=== PATIENT | male | born 1940 | race Caucasian/White ===

== ENCOUNTER 2017-04-28 14:24 | Inpatient (IN) | payer OTHER ==
[~2017-04-28] VITALS: Ht 182.9 cm; Wt 110.7 kg
--- NOTE | ~2017-04-28 | 2DMMODE ---
[facility] [address] [place] [address] 2 D/M-MODE ECHOCARDIOGRAM Name: TARYN FAM Room #: 438-P ADM IN M.R.#: [id number] Admission: 04/28/17 Attend Phys: Jesus Chaidez, Discharge: Date of : 44 Date of Service: 04/29/17 1236 Report #: [id number] THIS REPORT FOR: //name// APPROVED REPORT Study performed: 04/29/2017 09:07:45 EXAM: Comprehensive 2D, Doppler, and color-flow Echocardiogram Patient Location: Echo lab Room #: [facility] Status: routine BSA: 2.32 HR: 80 bpm BP: 123/84 mmHg Rhythm: Atrial Fibrillation Other Information Study Quality: Good Indications CVA. Hx: Afib, CM, AVR, HTN, HLP, DM, obesity Echo Enhancing Agent Indication: Rule out Shunt Agent(s) / Amount(s) Used: Agitated Saline 6 cc 2D Dimensions RVDd: 44.78 mm LVEF(%): 50.08 (>50%) IVSd: 11.99 (7-11mm) LVOT Diam: 22.28 (18-24mm) LVDd: 57.12 mm PWd: 11.91 (7-11mm) LVDs: 42.38 (25-40mm) Aortic Root: 30.83 mm Reveles's LVEF: 50.08 % Volumes Left Atrial Volume (Systole) Single Plane 4CH: 105.91 mL Single Plane 2CH: 96.22 mL LA ESV Index: 47.00 mL/m2 Aortic Valve AoV Peak Hesham.: 2.29 m/s AO Peak Gr.: 21.08 mmHg LVOT Max P.34 mmHg LVOT Max V: 0.76 m/s LEI Vmax: 1.[address] [facility] [address] [place] [address] 2 D/M-MODE ECHOCARDIOGRAM Name: TARYN FAM Room #: 438-P ADM IN M.R.#: [id number] Admission: 04/28/17 Attend Phys: Jesus Chaidez, Discharge: Date of : 44 Date of Service: 04/29/17 1236 Report #: [id number] Mitral Valve MV Decel. Time: 198.90 ms MV E Max Hesham.: 1.08 m/s Pulmonary Valve PV Peak Hesham.: 0.93 m/s PV Peak Gr.: 3.54 mmHg Tricuspid Valve TR Peak Hesham.: 2.69 m/s RAP Estimate: 15.00 mmHg TR Peak Gr.: 28.95 mmHg PA Pressure: 44.00 mmHg Left Ventricle The left ventricle is normal size. There is normal LV segmental wall motion. Borderline concentric left ventricular hypertrophy. Left ventricular systolic function is normal. LVEF is 50-55%. This study is not technically sufficient to allow evaluation of the LV diastolic function due to atrial fibrillation. Right Ventricle The right ventricle is normal size. The right ventricular systolic function is normal. Atria Left atrium is moderate to severely dilated. No shunting noted by contrast bubble injection. Right atrium is moderate to severely dilated. Aortic Valve A #25 Jose bioprosthetic aortic valve is present. Appears to be functioning within normal limits Peak gradient of 21mmHg. Trace aortic regurgitation. Mitral Valve Mitral valve leaflets are mildly thickened. Moderate mitral regurgitation. Tricuspid Valve The tricuspid valve is normal in structure. Mild tricuspid regurgitation. Estimated PAP is 40-45mmHg. Pulmonic Valve The pulmonary valve is normal in structure. Trace pulmonic regurgitation. [facility] [address] [place] [address] 2 D/M-MODE ECHOCARDIOGRAM Name: TARYN FAM Room #: 438-P [facility] IN .R.#: [id number] Admission: 04/28/17 Attend Phys: Jesus Chaidez, Discharge: Date of : 44 Date of Service: 04/29/17 1236 Report #: [id number] Great Vessels The aortic root is normal in size. Ascending aorta is not well visualized. IVC is dilated and collapses <50% with inspiration. Pericardium There is no pericardial effusion. <Conclusion> Left ventricular systolic function is normal. LVEF is 50-55%. Both atria are moderate to severely dilated. No shunting noted by contrast bubble injection. A #25 Jose bioprosthetic aortic valve is present; functioning normally peak gradient of 21mmHg. Mitral valve leaflets are mildly thickened. Moderate mitral regurgitation. Mild tricuspid regurgitation. Estimated pulmonary artery pressure of 40-45mmHg. There is no pericardial effusion. <ELECTRONICALLY SIGNED> By: Drew Shah MD, FACC 04/29/17 1236 1236 1236 Drew Shah MD, FACC /INF
--- NOTE | ~2017-04-28 | HC ---
[facility] [address] CONSULTATION Name: TARYN FAM Room #: 438-P [facility] IN M.R.#: [id number] Admission: 04/28/17 Attend Phys: Jesus Chaidez DO Discharge: 04/30/17 Date of : 44 Report #: [id number] THIS REPORT FOR: //name// CC: Pancho Bliss FAM unknown Jesus Chaidez DATE OF SERVICE: 04/28/2017 HISTORY OF PRESENT ILLNESS: This is a 76-year-old male patient who was evaluated by me for left-sided weakness, which happened this morning. The patient is not clear about the symptoms, but I think he woke up with the symptoms. He was having pretty profound weakness in the left upper extremity and to some extent in the left lower extremity. Most of the weakness was in the left upper extremity. He may have improved some, but on examination, he still has weakness on the left side. This came spontaneously. He has a valve replacement and looks like he has atrial fibrillation. He said he was not able to take his Coumadin for some reason from the last 2-3 days. His INR was subtherapeutic. His protime was only 16.8 and his INR was 1.75. The only testing he had was a CT scan of the brain and as I understand that was unremarkable. He did have CBC and CMP and that his GFR was 68. REVIEW OF SYSTEMS: Indicates that he is on chronic anticoagulation, but he has missed his anticoagulation for last few days. He gave some complicated disease in which I do not understand he just says that he fell asleep. He does have atrial fibrillation on EKG done outside. His regular sas clinical programmer is Dr. Smith here. There are not much records in the patient's chart, but he indicates that prior to this, he did not have any stroke. He was not using a walker. They gave him a walker in case he needs it here. He denies any eye, ENT symptoms associated with this. He denies any chest pain, respiratory difficulty, GI, , musculoskeletal, constitutional, dermatological, hematological, psychiatric, throat, allergic symptom associated with present symptomatology. PAST MEDICAL HISTORY: Negative for stroke. FAMILY HISTORY: Negative for early age stroke. SOCIAL HISTORY: He indicates he was functioning independently before he came to the hospital. PHYSICAL EXAMINATION: Indicate he is alert, responsive, able to follow simple and complex command. His speech, concentration, fund of knowledge and memory is at his baseline. Cranial nerve examination 2-12 is mostly unremarkable. I do not see any definite hemianopsia or facial weakness, but he is weak on the left side. His finer coordination is significantly impaired. He does have a drift [facility] [address] [place] [address] CONSULTATION Name: TARYN FAM Room #: 438-P DIS IN M.R.#: [id number] Admission: 04/28/17 Attend Phys: Jesus Chaidez DO Discharge: 04/30/17 Date of : 44 Report #: [id number] on the left side. His left leg is reasonably preserved. His position sense is intact. His reflexes are symmetrical. He does not have any cerebellar sign. There is no meningeal sign. There is no carotid bruit. There is no thyroid mass. He is a very well developed individual who does not have any dysmorphic features of eyes, ears and face. His visions and hearing looks adequate. His pulses are somewhat difficult to feel, but he has no edema, cyanosis or jaundice. His heart looks irregular, but that is consistent with his atrial fibrillation on EKG. His vital signs indicate a blood pressure is 150/80, respirations 20, pulse is 84, temperature is 98.1. LABORATORY DATA: Done outside and as mentioned above, his BUN and creatinine looks okay. IMPRESSION: The patient's finding is consistent with a right hemispheric cerebrovascular accident. He has moderate amount of deficit. Records from outside hospital indicate that his symptoms have recovered, but he gives a different history and his examination does indicate that he has weakness on the left side. These findings are consistent with an emboli from the heart because of his therapeutic anticoagulation and his missing the dose of Coumadin and his history of atrial fibrillation and aortic wall. He does not know whether his aortic wall is compatible with MRI or not. RECOMMENDATION: I had a long talk with this patient. I discussed with him that I do not know whether anything is treatable at this stage or not. I will like to do a CT angiogram to see if there is any penumbra in this patient. For that, we will need a CT angiogram of the head and neck, but looks like his symptoms are going on for some time and we may just land up managing him conservatively. We will try to keep his blood pressure high, give him some normal saline, but we will see what the CT angiogram shows. I discussed with him indication, potential complication, and alternatives of CT angiogram and he understood it and wants to proceed with it. More than 50 minutes of time was spent taking care of this patient today and majority of that time was spent counseling the patient and coordinating his care. <ELECTRONICALLY SIGNED> By: Ramirez Varghese MD 05/02/17 2134 [id number] Ramirez Varghese MD /eliza
[2017-04-28 14:02] VITALS: BP 150/80
[2017-04-28] MEDS ORDERED: LISINOPRIL20 MG PO (19:23)
[2017-04-28 19:26] VITALS: BP 145/80
[2017-04-28] MEDS ORDERED: COUMADIN 1MG TAB1 M1 PO (19:38)
[2017-04-28] MEDS ORDERED: GLIPIZIDE 10 MG10 MG PO (19:39)
[2017-04-28] MEDS ORDERED: KLOR-CON 1010 MEQ PO (20:27)
[2017-04-28] MEDS ORDERED: DIGOXIN125 MCG PO (20:27)
[2017-04-28] MEDS ORDERED: LASIX 40 MG TAB40 M2 PO (20:28)
[2017-04-28] MEDS ORDERED: ZOCOR20 MG PO (20:29)
[2017-04-28] MEDS ORDERED: METFORMIN HCL500 MG PO (20:29)
[2017-04-28] MEDS ORDERED: MOBIC15 MG PO (20:30)
[2017-04-28] MEDS ORDERED: LOPRESSOR25 PO (20:30)
[2017-04-28] MEDS ORDERED: VITAMINC500 PO (20:31)
[2017-04-28] MEDS ORDERED: UNICOMPLEX M TA1 TA1 PO (20:31)
[2017-04-29 00:36] VITALS: BP 156/77
[2017-04-29 02:48] VITALS: BP 139/83
[2017-04-29 06:53] LABS: ALBUMIN 3.3 g/dL (3.4-5.0); ANION GAP 8 mmol/L (7-16); BUN 18 mg/dL (7-18); CALCIUM 8.9 mg/dL (8.5-10.1); CHLORIDE 108 mmol/L (98-107); CO2 27 mmol/L (21-32); GLUCOSE 109 mg/dL (74-106); POTASSIUM 4.3 mmol/L (3.5-5.1); SGOT 19 U/L (15-37); SGPT 26 U/L (30-65); SODIUM 143 mmol/L (136-145); TOTAL BILIRUBIN 0.5 mg/dL (<0.1-1.0); TOTAL PROTEIN 6.8 g/dL (6.4-8.2)
[2017-04-29 07:57] VITALS: BP 123/84
[2017-04-29 07:57] LABS: CHOLESTEROL 98 mg/dL (<200); HDL CHOLESTEROL 27 mg/dL (>40); LDL CHOLESTEROL 45 mg/dL (<100); TC:HDL 3.6 Ratio (Not establshd); TRIGLYCERIDE 130 mg/dL (<150); VLDL 26 mg/dL (<40)
[2017-04-29 08:48] LABS: INR 1.4; PROTIME 14.3 Seconds (9.3-11.4)
[2017-04-29 15:43] VITALS: BP 136/65
[2017-04-29 22:26] VITALS: BP 144/77
[2017-04-30 04:22] VITALS: BP 122/72
[2017-04-30 06:23] LABS: INR 1.4
[2017-04-30 08:00] VITALS: BP 133/91
[2017-04-30] MEDS ORDERED: ELIQUIS5 MG PO (10:21)
[2017-04-30 12:11] VITALS: BP 133/91
[2017-04-30 12:16] VITALS: BP 133/91
[2017-04-30 15:50] VITALS: BP 133/91
== END 2017-04-30 15:30 | disposition home or self-care (01) | DRG 65 ==
LOC: 4S 14:24 → ENTRNSPT 04-30 15:13 → EDTRNSPTSTS 04-30 15:21 → 4S 04-30 15:30 → CMPTRNSPT 04-30 15:40
PROVIDERS: Hospitalist; Internal Medicine Cardiovascular Disease; Psychiatry & Neurology Neuromuscular Medicine
DX: I63.431 Cerebral infarction due to embolism of right posterior cerebral artery (principal); I42.9 Cardiomyopathy, unspecified; D68.59 Other primary thrombophilia; I10 Essential (primary) hypertension; E11.9 Type 2 diabetes mellitus without complications; E66.9 Obesity, unspecified; E78.00 Pure hypercholesterolemia, unspecified; E03.9 Hypothyroidism, unspecified; I48.2 Chronic atrial fibrillation; M47.812 Spondylosis without myelopathy or radiculopathy, cervical region; Z95.2 Presence of prosthetic heart valve; Z68.33 Body mass index [BMI] 33.0-33.9, adult; Z88.0 Allergy status to penicillin; Z88.7 Allergy status to serum and vaccine; Z87.891 Personal history of nicotine dependence; Z91.19 Patient's noncompliance with other medical treatment and regimen
CPT/HCPCS: 10100

== ENCOUNTER 2018-03-17 05:33 | Inpatient (IN) | payer OTHER ==
--- NOTE | 2018-03-02 13:41 | EKG ---
[address] [address] ELECTROCARDIOGRAM REPORT Name: TARYN FAM Room #: PRE IN ..#: [id number] Admission: Attend Phys: Ayaan Reece MD Discharge: Date of : 44 Report #: [id number] THIS REPORT FOR: //name// [facility] Test Date: 2018-03-02 Test Time: 13:17:48 Pat Name: TARYN FAM Department: Room: Gender: Drywall Finisher: Aleida XAVIER : 1940 Requested By: Ayaan Reece Order Number: [id number] MD: Stephan Junior Measurements Intervals [place] Rate: 62 P: [place]: QRS: 55 QRSD: 99 T: 211 QT: 368 QTc: 374 Interpretive Statements Atrial fibrillation Borderline repolarization abnormality Compared to ECG 07/26/2008 14:18:30 T-wave abnormality no longer present Electronically Signed On 03-02-2018 13:41:31 GEOSCIENCE PROFESSOR by Stephan Junior [email or web address] <ELECTRONICALLY SIGNED> By: Stephan Junior MD 03/02/18 1341 1317 16 Stephan Junior MD /BRITTANY
[2018-03-02 14:04] LABS: HEMATOCRIT 44.9 % (42.0-52.0); HEMOGLOBIN 15.3 gm/dL (14.0-18.0); MCH 28.9 pg (26.0-34.0); MCHC 34.1 g/dL (28.0-37.0); MCV 84.8 fL (80.0-100.0); RBC 5.3 mil/uL (4.50-6.00); RDW 14.4 % (10.5-14.5); WBC 8.3 thou/uL (4.0-11.0)
[2018-03-02 14:08] LABS: URINE CLARITY CLEAR; URINE COLOR YELLOW
[2018-03-02 14:12] LABS: URINE BILIRUBIN NEGATIVE (Negative); URINE BLOOD NEGATIVE (Negative); URINE GLUCOSE-RANDOM* NEGATIVE (Negative); URINE KETONES NEGATIVE (Negative); URINE LEUKOCYTES-REFLEX NEGATIVE (Negative); URINE NITRITE-REFLEX NEGATIVE (Negative); URINE PROTEIN (DIPSTICK) NEGATIVE (Negative)
[2018-03-02 14:13] LABS: ALBUMIN 3.9 g/dL (3.4-5.0); CALCIUM 9.4 mg/dL (8.5-10.1); CREATININE 1.2 mg/dL (0.7-1.3); POTASSIUM 4.3 mmol/L (3.5-5.1)
[2018-03-02 14:15] LABS: INR 1.1; PROTIME 11.1 Seconds (9.3-11.4)
[2018-03-02 23:11] LABS: GLYCOHEMOGLOBIN (HGB A1C) 6.7 % (4.8-5.6)
[~2018-03-17] VITALS: Ht 182.9 cm; Wt 108.9 kg
--- NOTE | ~2018-03-17 | O ---
[facility] [place] [address] OPERATIVE REPORT Name: TARYN FAM Room #: 150-4 ADM IN M.R.#: [id number] Admission: 03/17/18 Attend Phys: Ayaan Reece MD Discharge: Date of : 44 Report #: [id number] THIS REPORT FOR: //name// CC: Jesus Reece DATE OF SERVICE: 03/17/2018 PREOPERATIVE DIAGNOSIS: Right knee medial compartment osteoarthritis. POSTOPERATIVE DIAGNOSIS: Right knee medial compartment osteoarthritis. PROCEDURE: Right knee medial compartment arthroplasty with Navio robotic assistance. SURGEON: Ayaan Reece MD. FINAL BLOCK PRESS OPERATOR: Randi Purvis PA-C. INDICATION FOR FINAL BLOCK PRESS OPERATOR: Throughout the case, extensive retraction and manipulation of the knee was required. This was afforded to me by my guest services assistant. ANESTHESIA: LMA with an adductor canal block. IMPLANTS: Leger and Nephew size 4 Journey unicompartmental Oxinium femoral component, size 2 tibial sub-component and a size 9 polyethylene. TOURNIQUET TIME: 65 minutes. ESTIMATED BLOOD LOSS: 25 mL. COMPLICATIONS: None. SPECIMENS: None. CONDITION UPON LEAVING THE OPERATING ROOM: Stable. INDICATIONS FOR PROCEDURE: The patient is a 77-year-old gentleman with severe right knee medial compartment osteoarthritis. He had failed conservative measures for this and after discussion with him, he elected for right knee medial compartment arthroplasty. DESCRIPTION OF PROCEDURE: Risks, benefits, alternatives and complications were discussed in detail with the patient including but not limited to risk of anesthesia, risk of damage to nerves, arteries, blood vessels, risk for infection, bleeding, risk for continued knee pain and need for reoperation. [facility] [address] [place] [address] OPERATIVE REPORT Name: TARYN FAM Room #: 150-4 ADM IN M.R.#: [id number] Admission: 03/17/18 Attend Phys: Ayaan Reece MD Discharge: Date of : 44 Report #: [id number] Informed consent was obtained from the patient. Right knee was appropriately marked in the preoperative holding area. IV clindamycin was given for preoperative antibiotics. Adductor canal block placed by anesthesia. He was brought to the operating room and placed in the supine position on the operating room table. LMA anesthesia was induced without complication. Tourniquet was placed on the right thigh. Right lower extremity was prepped and draped in normal sterile fashion. Timeout was performed properly identifying the patient and procedure as well as the instrumentation and implants. All in the operating room were in agreement. Standard approach to the medial knee was made with 10 blade through the skin. Dissection was taken down sharply to the fascia and deep flaps were developed medially and laterally. A fresh 10-blade was used to make a medial parapatellar arthrotomy and the knee was inspected. There was severe medial compartment osteoarthritis. The lateral compartment was well maintained and patellofemoral compartment was well maintained. It was decided to proceed with medial compartment arthroplasty. Reference pins were then placed in the femur and the tibia and the knee was digitally mapped using the Watchsend robotic system. The size 4 femur and a size 2 tibia for a 9 polyethylene, after acceptance of intraoperative plan, the femoral and tibial resections were made using the Navio robotic bur. After this, the tibia was sized, found to be of size 2. A size 2 tibial trial was placed, pinned and drilled. A size 4 femoral trial was placed and this was then trialed with a size 8 and then a size 9 polyethylene, and size 9 polyethylene had 1 mm of laxity throughout range of motion and was felt to have the best fit. After this, trial components were removed. Bony ends were thoroughly irrigated with normal saline and final size 2 tibia, size 4 Journey medial compartment femoral Oxinium component were cemented in place using standard cementation techniques. While the cement cured, a periarticular injection consisting of morphine, ropivacaine, epinephrine and Toradol was placed around the knee joint capsule. After the cement cured, the tourniquet was deflated. Hemostasis was obtained with Bovie cautery. Final size 9 polyethylene was placed. A gram of vancomycin was placed in the joint. The fascia was closed with 0 Vicryl, skin was closed with 2-0 Vicryl, 3-0 Monocryl. Dermabond and a IJEOMA dressing applied. The patient tolerated this procedure well and went to recovery room under care of anesthesia postoperatively. By: 1204 1235 Ayaan Reece MD /nt
[~2018-03-17 05:33] MED LIST: COUMADIN 1MG TAB1 M1 PO; DIGOXIN125 MCG PO; ELIQUIS5 MG PO; GLIPIZIDE 10 MG10 MG PO; KLOR-CON 1010 MEQ PO; LASIX 40 MG TAB40 M2 PO; LISINOPRIL20 MG PO; LOPRESSOR25 PO; METFORMIN HCL500 MG PO; MOBIC15 MG PO; NEURONTIN300 MG PO; UNICOMPLEX M TA1 TA1 PO; VITAMIN D250000 UNIT PO; VITAMINC500 PO; ZOCOR20 MG PO
[2018-03-17 08:56] VITALS: BP 136/64
[2018-03-17 17:55] VITALS: BP 133/66
--- NOTE | 2018-03-17 18:44 | NUR ---
ASSUMED CARE AT 1700, SHIFT ASSESSMENT DONE, MEDS GIVEN, FLUDIS STARTED. RPEROTED PAIN, PRN PAIN MED GIVEN. WILL CONTINUE TO ASSESS AND ASSIST WITH ADLs NEEDED.
[2018-03-17 19:40] VITALS: BP 140/75
--- NOTE | 2018-03-18 04:09 | NUR ---
A/O, calm and cooperative; vss, afebrile, no n/v; small amount of dry blood drainage was seen on the dressing of right knee at the beginning of the shift;Byron choe on; patient reported around 2100 that the urine output of the whole day was 80 ml, patient also reported having finished all the food and drink for the dinner and had been drinking a lot of water. ENTERPRISE RECORDS ANALYST. was reported to about the situation. Continous fluid infusion was DC according to Josiah's order. Blood sugar was 333. Metformin given. Lab reviewed, will keep monitoring.
[2018-03-18 05:03] VITALS: BP 126/52
[2018-03-18 05:34] LABS: HEMATOCRIT 37.9 % (42.0-52.0); HEMOGLOBIN 12.5 gm/dL (14.0-18.0); MCH 28.4 pg (26.0-34.0); MCV 85.9 fL (80.0-100.0); RBC 4.42 mil/uL (4.50-6.00); RDW 14.5 % (10.5-14.5); WBC 11.6 thou/uL (4.0-11.0)
[2018-03-18 07:30] VITALS: BP 131/58
[2018-03-18 14:11] VITALS: BP 131/58
--- NOTE | 2018-03-18 14:30 | NUR ---
ASSESSMENT-PT LIVES AT HOME WITH HIS S.O, HER DTR AND HIS GRANDSON. PT PLANS TO DC HOME TODAY BUT NEEDS A ROLLER WALKER FOR DC. OFFERED OPTIONS AND HE CHOSE [employer] FOR THE WALKER. S/W ANNE AND SHE DELIVERED A ROLLER WALKER TO PT'S ROOM. PT SAYS HE WILL GO TO OUTPT THERAPY AT [facility]. NO OTHER DC NEEDS AT THIS TIME.
--- NOTE | 2018-03-18 15:06 | NUR ---
ASSUMED CARE OF PT AT 0700. ASSESSMENT COMPLETED, MORNING MEDS GIVEN ORDERED. HX A.FIB, HTN, DM - HOME MEDS GIVEN ORDERED. C/O MINIMAL RIGHT KNEE PAIN S/P RIGHT PARTIAL KNEE REPLACEMENT, PAIN MEDS GIVEN ORDERED. IJEOMA DRESSING IN PLACE, SMALL AMOUNT OF DRIED BLOOD NOTED. RETA HOSE AND SCD'S IN PLACE. NO SWELLING OR REDNESS NOTED. SMALL BM TODAY, STOOL SOFTENER AND PRUNE JUICE GIVEN. PT IN STABLE CONDITION. PT WORKED WITH P.T. AND WALKER, NO PROBLEMS NOTED. UP AD ANDREW NOW. PA AND HOSPITALIST AT BEDSIDE. NEW DISCHARGE ORDERS. SCRIPTS AND CARENOTES GIVEN. D/C INFORMATION GIVEN TO PATIENT AND DAUGHTER AT BEDSIDE. IV REMOVED, NO BLEEDING NOTED. PT BELONGINGS COLLECTED AND SENT WITH PT. PT LEFT VIA WHEELCHAIR AT 15:05 IN STABLE CONDITION.
== END 2018-03-18 15:10 | disposition home or self-care (01) | DRG 470 ==
LOC: TBA 05:33 → 4E 05:33 → PRE 05:45 → 4E 17:11 → ENTRNSPT 03-18 14:52 → EDTRNSPTSTS 03-18 14:55 → 4E 03-18 15:10
PROVIDERS: ADMIT Orthopaedic Surgery
DX: M17.11 Unilateral primary osteoarthritis, right knee (principal); I13.0 Hypertensive heart and chronic kidney disease with heart failure and stage 1 through stage 4 chronic kidney disease, or unspecified chronic kidney disease; I48.91 Unspecified atrial fibrillation; E78.5 Hyperlipidemia, unspecified; I50.9 Heart failure, unspecified; E11.22 Type 2 diabetes mellitus with diabetic chronic kidney disease; Y90.9 Presence of alcohol in blood, level not specified; E66.9 Obesity, unspecified; F10.20 Alcohol dependence, uncomplicated; E11.51 Type 2 diabetes mellitus with diabetic peripheral angiopathy without gangrene; N18.9 Chronic kidney disease, unspecified; Z86.73 Personal history of transient ischemic attack (TIA), and cerebral infarction without residual deficits; Z95.2 Presence of prosthetic heart valve; Z68.32 Body mass index [BMI] 32.0-32.9, adult; Z88.0 Allergy status to penicillin; Z88.7 Allergy status to serum and vaccine; Z79.899 Other long term (current) drug therapy; Z82.49 Family history of ischemic heart disease and other diseases of the circulatory system
CPT/HCPCS: 10783; 50010; 50101; 50415; 50954; 51130; 51225; 53078; 53370; 54118; 56527; 56528; 57095; 57103; 57109; 57110; 57113; 57180; 62110; 62900; 64043; 65060; 70005

== ENCOUNTER → 2019-03-16 | Outpatient (CLI) | payer OTHER | LOC: SJCVC 14:26 | DX: I45.4 Nonspecific intraventricular block (principal); R94.31 Abnormal electrocardiogram [ECG] [EKG]; I48.91 Unspecified atrial fibrillation; I10 Essential (primary) hypertension; E11.9 Type 2 diabetes mellitus without complications; I34.0 Nonrheumatic mitral (valve) insufficiency; I65.23 Occlusion and stenosis of bilateral carotid arteries; I25.10 Atherosclerotic heart disease of native coronary artery without angina pectoris; I25.5 Ischemic cardiomyopathy; D68.59 Other primary thrombophilia; Z95.3 Presence of xenogenic heart valve; Z79.899 Other long term (current) drug therapy ==

== ENCOUNTER → 2019-07-19 | Outpatient (CLI) | payer OTHER ==
[~2019-07-19] MED LIST changes: +GLIPIZIDE ER5 MG PO; +METOPROLOL SUCC25 M1 PO; +SILDENAFIL CIT100 MG PO; +TOPAMAX50 MG PO; +TORSEMIDE20 MG PO; +TRAMADOL 50 MG50 MG PO
== END ==
LOC: SJCVC 12:21 → SJCVCIMAG 12:21
DX: I65.23 Occlusion and stenosis of bilateral carotid arteries (principal); I08.1 Rheumatic disorders of both mitral and tricuspid valves; I11.0 Hypertensive heart disease with heart failure; I50.9 Heart failure, unspecified; I48.21 Permanent atrial fibrillation; E78.00 Pure hypercholesterolemia, unspecified; E11.9 Type 2 diabetes mellitus without complications; I25.10 Atherosclerotic heart disease of native coronary artery without angina pectoris; D68.59 Other primary thrombophilia; H53.8 Other visual disturbances; R60.9 Edema, unspecified; Z82.49 Family history of ischemic heart disease and other diseases of the circulatory system; Z87.891 Personal history of nicotine dependence; Z95.3 Presence of xenogenic heart valve; Z79.84 Long term (current) use of oral hypoglycemic drugs; Z79.899 Other long term (current) drug therapy

== ENCOUNTER → 2019-07-21 | Outpatient (CLI) | payer OTHER ==
[~2019-07-21] VITALS: Ht 182.9 cm; Wt 102.1 kg
[~2019-07-21] MED LIST changes: +MAGNESIUM250 M1 PO; +MELOXICAM15 MG PO; +VITAMIN C500 M2 PO
[2019-07-21 09:10] VITALS: BP 133/58
--- NOTE | 2019-07-21 14:35 | HC ---
[facility] [place] [address] CONSULTATION Name: TARYN FAM Room #: REG FABIAN Horan.#: [id number] Admission: 07/21/19 Attend Phys: Krystian Leo MD Discharge: Date of : 44 Report #: [id number] THIS REPORT FOR: cc: Jesus Islas,Hammad Marquez MD ~ CC: Krystian Islas DATE OF SERVICE: 07/21/2019 We were asked by Dr. Smith and Dr. Leo to see the patient. HISTORY OF PRESENT ILLNESS: The patient is a 78-year-old from the [facility] presents with cardiovascular followup. The patient states that he has begun to have some lower extremity edema and this initiated a repeat cardiac visit. We note the patient has chronic atrial fibrillation, on anticoagulation (Eliquis) and has had an aortic valve replacement with a 25 mm Jessica-Jose bioprosthesis approximately 4 years ago. Although, the patient denies symptoms related to it, the patient has a 90% carotid stenosis seen on outpatient duplex and in the face of some shortness of breath on exertion and fluid retention, the patient was scheduled for cardiac catheterization and carotid evaluation. PAST MEDICAL HISTORY: Significant for in addition to the aortic valve replacement and chronic atrial fibrillation, diabetes mellitus, hypertension and dyslipidemia. MEDICATIONS AT HOME: Includes Eliquis, diltiazem, glipizide, lisinopril, meloxicam, metformin, Toprol-XL, potassium, simvastatin, Topamax, Demadex, Ultram. ALLERGIES: THE PATIENT CLAIMS TO BE ALLERGIC TO PENICILLIN AND TETANUS, ANY TOXIN. FAMILY HISTORY: Mother has rheumatoid arthritis. Father has had a heart attack. REVIEW OF SYSTEMS: CONSTITUTIONAL: Denies fever, weight change. EYES: Denies vision change. HEENT: Denies headache, nasal discharge. Hearing: No hearing problems. RESPIRATORY: Some shortness of breath with exertion. CARDIAC: Chronic atrial fibrillation. GASTROINTESTINAL: No nausea, vomiting, blood in stools. [facility] [address] [place] [address] CONSULTATION Name: TARYN FAM Room #: REG [facility].#: [id number] Admission: 07/21/19 Attend Phys: Krystian Leo MD Discharge: Date of : 44 Report #: [id number] GENITOURINARY: No urgency, frequency, blood in urine. MUSCULOSKELETAL: Denies bone or joint pain. SKIN: Denies rash or infection. We do note the edema in the right lower extremity, which seems to have been weeping from the skin, which has now resolved. ENDOCRINE: Denies goiter. Denies tremor. PHYSICAL EXAMINATION: VITAL SIGNS: Blood pressure 138/64, heart rate 60. HEENT: No scleral icterus, no arcus. NECK: No mass. Left cervical bruit audible. CHEST: Clear anteriorly. HEART: Rhythm is atrial fibrillation. ABDOMEN: Soft. EXTREMITIES: No clubbing, cyanosis. Trace edema. There is some brawny skin in the gaiter area bilaterally. 2+ popliteal pulses palpable. PSYCHIATRIC: The patient answers questions appropriately. He is pleasant and shows insight into problem. IMPRESSION: The patient has 90% right carotid stenosis. Trivial coronary artery disease is seen. I have recommended right carotid endarterectomy. Risks and details were discussed. Options and alternatives were reviewed. Risks include but are not limited to bleeding, infection, anesthesia risks, stroke and neurologic dysfunction. Options and alternatives were reviewed. The patient understands all of this and wishes to proceed. The patient has held his Eliquis for the cardiac catheterization. He will continue to do so until after carotid surgery. I have asked the patient to take a baby aspirin daily until that time. Thank you for the consult. <ELECTRONICALLY SIGNED> By: Hammad Mann MD 07/21/19 1435 1356 1427 Hammad Mann MD /nt
[2019-07-21 15:04] LABS: ABSOLUTE NEUTROPHILS 4.5 thou/uL (1.4-8.2); BASOPHILS 0.7 % (0.0-2.0); EOSINOPHILS 5.4 % (0.0-3.0); HEMATOCRIT 41.1 % (42.0-52.0); HEMOGLOBIN 13.6 gm/dL (14.0-18.0); LYMPHOCYTES 18.2 % (24.0-44.0); MCH 28.4 pg (26.0-34.0); MCHC 33.2 g/dL (28.0-37.0); MCV 85.5 fL (80.0-100.0); MONOCYTES 8.9 % (1.0-8.0); PLATELET COUNT 110 thou/uL (150-400); POLYS 66.8 % (36.0-66.0); RBC 4.81 mil/uL (4.50-6.00); RDW 16.8 % (10.5-14.5); WBC 6.7 thou/uL (4.0-11.0)
[2019-07-21 15:11] LABS: URINE BILIRUBIN NEGATIVE (Negative); URINE BLOOD NEGATIVE (Negative); URINE CLARITY CLEAR; URINE COLOR YELLOW; URINE GLUCOSE-RANDOM* NEGATIVE (Negative); URINE KETONES NEGATIVE (Negative); URINE LEUKOCYTES-REFLEX NEGATIVE (Negative); URINE NITRITE-REFLEX NEGATIVE (Negative); URINE PROTEIN (DIPSTICK) NEGATIVE (Negative); URINE SPECIFIC GRAVITY <= 1.005 (1.005-1.035); URINE UROBILINOGEN 0.2 E.U./dl (0.2-1.0)
[2019-07-21 16:19] LABS: CALCIUM 8.8 mg/dL (8.5-10.1); CREATININE 1.2 mg/dL (0.7-1.3); POTASSIUM 3.8 mmol/L (3.5-5.1)
[2019-07-21 16:26] LABS: ALBUMIN 3.9 g/dL (3.4-5.0); TOTAL BILIRUBIN 0.5 mg/dL (0.2-1.0); TOTAL PROTEIN 7.8 g/dL (6.4-8.2)
[2019-07-21 16:50] LABS: INR 1.1; PROTIME 10.8 Seconds (9.3-11.4)
--- NOTE | 2019-07-22 08:39 | EKG ---
[facility] [place] [address] ELECTROCARDIOGRAM REPORT Name: TARYN FAM Room #: REG [facility].#: [id number] Admission: 07/21/19 Attend Phys: Krystian Leo MD Discharge: Date of : 44 Report #: [id number] THIS REPORT FOR: cc: Jesus Islas James L. DO Lundgren,Drew Blunt MD [facility] ~ THIS REPORT FOR: //name// [facility] Test Date: 2019-07-21 Test Time: 15:08:45 Pat Name: TARYN FAM Department: Room: Gender: Buffer Nickel: Taylor BERNABE : 1940 Requested By: Marc Joiner Order Number: [id number] MD: Drew Shah Measurements Intervals [place] Rate: 67 P: [place]: QRS: 121 QRSD: 162 T: 159 QT: 503 QTc: 531 Interpretive Statements Consider limb lead reversal Atrial fibrillation Left bundle branch block Compared to ECG 03/02/2018 13:17:48 Left bundle branch block is now present Electronically Signed On 07-22-2019 8:37:23 CDT by Drew Shah [email or web address] <ELECTRONICALLY SIGNED> By: Drew Shah MD, [facility] 07/22/19 0837 1508 1508 Drew Shah MD, [facility] /EPI
--- NOTE | 2019-07-22 11:09 | CATHLAB ---
[facility] [place] [address] INVASIVE PROCEDURE REPORT Name: TARYN FAM Room #: REG FABIAN Horan.#: [id number] Admission: 07/21/19 Attend Phys: Krystian Leo MD Discharge: Date of : 44 Report #: [id number] THIS REPORT FOR: cc: Jesus Islas James L. DO Mancuso, Gerald M. MD [facility] ~ APPROVED REPORT Study performed: 07/21/2019 12:13:15 Patient Details Patient Status: Out-Patient Room #: The patient is a 78 year-old male Event Personnel Alfonso Yuen RN RN, Chrissy Moreno RTR, Varinder Apodaca Roberta Monitor, Jose Martin Smith, Metal Drilling Machine Operator Procedures Performed Right and Left Heart Cath w/or w/o Coronarie [id number] [facility] [address] Initial Mod Sed Same Phys/QHP Gr5y [id number] Hemostasis w/ Mynx Indication Positive stress test Procedure Narrative A SHEATH BRITE-TIP 6F X 11CM ([id number]) sheath was inserted into the RFA. Coronary angiography was performed using coronary diagnostic catheters. The right coronary system was accessed and visualized with a JR4 catheter. The left coronary system was accessed and visualized with a JL4 catheter. An aortogram of the ascending aorta was performed. Closure device was deployed with a 6 Fr 6F/7F MYNX CLOSURE DEVICE. Hemostasis was obtained with manual pressure following sheath removal without any complications. The patient tolerated the procedure well and there were no complications associated with the procedure. There was no hematoma. Intraoperative Conscious Sedation Sedation start time: 11:20 Case end Time: 13:05 Fentanyl 125.0 mcg Versed 22 mg Conscious sedation is a combined total for peripheral procedure and right and left heart cath. [facility] [address] [place] [address] INVASIVE PROCEDURE REPORT Name: TARYN FAM Room #: REG [facility].#: [id number] Admission: 07/21/19 Attend Phys: Krystian Leo, Discharge: Date of : 42 Report #: [id number] Fluoro time and dose is a combined total for peripheral procedure and right and left heart cath. Contrast is a combined total for peripheral procedure and right and left heart cath. Fluoro Time: 9.00 minutes Dose: DAP 35479.60 cGycm2 2668 mGy Contrast Type and Amount: Omnipaque 159 ml Hemodynamics The right atrial mean pressure is 24 mmHg. The right ventricular pressure is 70/-1 mmHg. The pulmonary artery pressure is 61/26 mmHg with a mean of 39 mmHg. The mean pulmonary capillary wedge pressure is 40 mmHg. The aortic pressure is 149/63 mmHg with a mean of 55 mmHg. The cardiac output using thermo method is 3.35 L/min. The cardiac index using thermo method is 1.49 L/min/m2. Conclusion 1. Supravalvular aortogram revealing evidence of a prosthetic aortic valve. There is trivial aortic insufficiency. Aortic root otherwise appears to be normal in caliber. #2 left main short free of disease giving rise to LAD and circumflex. #3 LAD is a relatively small vessel extend short of the apex with mild irregularity. #4 large dominant circumflex artery with mild distal disease. #5 small nondominant right coronary artery no occlusive disease #6 successful right heart catheterization with cardiac output by thermodilution. See above hemodynamics. Recommendations and plan: Patient also underwent carotid angiogram. Is high-grade carotid stenosis per Dr. Leo's dictation. More aggressive diuresis for elevated pulmonary pressures okay to proceed with carotid endarterectomy. <ELECTRONICALLY SIGNED> By: Jose Martin Smith MD, FACC 07/22/19 1106 1106 1106 Jose Martin Smith MD, FACC /INF
== END | disposition home or self-care (01) ==
LOC: CATH 07:55
PROVIDERS: Physician Assistant; ATTEND Nuclear Medicine Nuclear Cardiology
DX: R94.39 Abnormal result of other cardiovascular function study (principal); I25.10 Atherosclerotic heart disease of native coronary artery without angina pectoris; I35.1 Nonrheumatic aortic (valve) insufficiency; I65.21 Occlusion and stenosis of right carotid artery; K55.1 Chronic vascular disorders of intestine; I70.1 Atherosclerosis of renal artery; I70.209 Unspecified atherosclerosis of native arteries of extremities, unspecified extremity; I11.0 Hypertensive heart disease with heart failure; I50.9 Heart failure, unspecified; E11.9 Type 2 diabetes mellitus without complications; E78.5 Hyperlipidemia, unspecified; I42.9 Cardiomyopathy, unspecified; I48.91 Unspecified atrial fibrillation; E66.09 Other obesity due to excess calories; Z98.890 Other specified postprocedural states; Z79.899 Other long term (current) drug therapy; Z95.2 Presence of prosthetic heart valve; Z79.01 Long term (current) use of anticoagulants; Z87.891 Personal history of nicotine dependence; Z88.0 Allergy status to penicillin; Z88.2 Allergy status to sulfonamides; Z88.8 Allergy status to other drugs, medicaments and biological substances

== ENCOUNTER 2019-07-26 06:11 | Inpatient (IN) | payer OTHER ==
[2019-07-26] VITALS (10 sets, daily range): BP systolic 104–159; BP diastolic 56–78
[~2019-07-26] VITALS: Ht 182.9 cm; Wt 102.1 kg
[2019-07-26 11:38] LABS: CALCIUM 8.9 mg/dL (8.5-10.1); CREATININE 1.4 mg/dL (0.7-1.3); MAGNESIUM 2.1 mg/dL (1.8-2.4); POTASSIUM 3.7 mmol/L (3.5-5.1)
[2019-07-26 13:43] LABS: URINE BILIRUBIN NEGATIVE (Negative); URINE BLOOD NEGATIVE (Negative); URINE CLARITY CLEAR; URINE COLOR YELLOW; URINE GLUCOSE-RANDOM* NEGATIVE (Negative); URINE KETONES NEGATIVE (Negative); URINE LEUKOCYTES-REFLEX NEGATIVE (Negative); URINE NITRITE-REFLEX NEGATIVE (Negative); URINE PROTEIN (DIPSTICK) NEGATIVE (Negative)
--- NOTE | 2019-07-26 14:06 | NUR ---
1215 PT ARRIVED FROM PACU. ART LINE IN PLACE. START IV FLUIDS. CARLY PO, WAITING FOR LUNCH TRAY. LOCO CALLED TO UPDATE. PT BELONGINGS IN HIS ROOM, GLASSES AND CELL PHONE AT BEDSIDE. NO COMPLAINTS.
[2019-07-27] VITALS (14 sets, daily range): BP systolic 117–141; BP diastolic 56–99
[2019-07-27 05:15] LABS: CALCIUM 7.6 mg/dL (8.5-10.1); CREATININE 1.1 mg/dL (0.7-1.3); POTASSIUM 3.7 mmol/L (3.5-5.1)
[2019-07-27 05:17] LABS: HEMATOCRIT 35.2 % (42.0-52.0); HEMOGLOBIN 11.8 gm/dL (14.0-18.0); MCH 28.4 pg (26.0-34.0); MCHC 33.5 g/dL (28.0-37.0); MCV 84.8 fL (80.0-100.0); RBC 4.15 mil/uL (4.50-6.00); RDW 16.2 % (10.5-14.5); WBC 11.7 thou/uL (4.0-11.0)
--- NOTE | 2019-07-27 10:40 | NUR ---
chart review. cm spoke with bedside nurse who stated pt is up in chair and has phone and he is able to talk via phone call. cm tried calling him - no answer. cm tried calling [place] and no answer and unable to leave message. noted pt lives with sig other, children and grandchildren in [place]. has walker, and outpt rehab at [facility] in the past. will cont following as needed for dc needs.
--- NOTE | 2019-07-27 14:41 | NUR ---
ASSUMED CARE AT 0700, VITAL SIGNS AND ASSESSMENT COMPLETED PER ICU PROTOCOL. PT DISCHARGED TO HOME, DISCHARGE INSTRUCTIONS REVIEWED, PT VERBALIZED UNDERSTANDING. TRANSPORTED TO VEHICLE BY NURSING STAFF, PT PICKED UP BY FAMILY.
--- NOTE | 2019-07-27 17:07 | PATH ---
[facility] [address] [place] [address] PATHOLOGY RPT PROCEDURE Name: LEONEL DOMÍNGUEZ Room #: 251-P [facility] [facility] IN M.R.#: [id number] Admission: 07/26/19 Date of : 44 Discharge: 07/27/19 Report #: [id number] Path Case #: [id number] [facility] Accession Number: [id number] . 01 Material submitted: . carotid body - RIGHT CAROTID PLAQUE. Modifiers: right . 01 Clinical history: . right carotid stenosis . 02 Diagnosis: Right carotid plaque, endarterectomy: - Calcified atherosclerotic plaque. . (IUV:mml; 07/27/2019) QL 07/27/2019 1501 Local . 02 Electronically signed: . Kristina Cabrera MD, Pathologist NPI- [id number] . 01 Gross description: . The specimen is received in formalin, labeled "Leonel Domínguez, right carotid plaque" and consists of a rubbery to calcified segment of yellow orange tissue measuring 2.5 x 1.3 x 1.0 cm. Section reveals a markedly stenotic lumen. Fitness Specialist sections are submitted in A1 following decalcification. (SDY; 07/26/2019) SYU/SYU 07/26/2019 1751 Local . 02 Pathologist provided ICD-10: I65.21 . 02 CPT . 268086 Specimen Comment: A courtesy copy of this report has been sent to [phone], [phone] Specimen Comment: [phone] Specimen Comment: Report sent to / DR SALAMANCA Performed at: [address], [place] [id number] MD José Bosch MD Phone: [phone] Performed at: [address] [id number] MD Kristina Cabrera MD Phone: [phone]
--- NOTE | 2019-08-01 09:00 | O ---
[facility] [place] [place] [address] OPERATIVE REPORT Name: TARYN FAM Room #: 251-P [facility] IN M.R.#: [id number] Admission: 07/26/19 Attend Phys: Hammad Mann MD Discharge: 07/27/19 Date of : 44 Report #: [id number] THIS REPORT FOR: cc: Jesus Islas,Jesus Polanco,Hammad Adams MD ~ CC: Jesus Mann PREOPERATIVE DIAGNOSIS: Right carotid artery stenosis. POSTOPERATIVE DIAGNOSIS: Right carotid artery stenosis. OPERATION: Right carotid endarterectomy with patch closure. SURGEON: Hammad Mann MD SCENIC ARTIST: PHILOMENA Price ANESTHESIA: General. INDICATIONS: The patient is a 78-year-old with high-grade right internal carotid artery stenosis. This is an ulcerated plaque that has a 90% narrowing. The left side has trivial disease. There is a 70% left vertebral stenosis as it originates from the aorta. The patient has a bovine arch. FINDINGS AND TECHNIQUE: After general anesthesia was established, an oblique right neck incision was made. Common facial vein was divided. Common internal and external carotid arteries were identified and controlled as was the superior thyroid. A 10,000 units of heparin were given. Continuous electroencephalographic monitoring was performed during the operation when the carotid vessels were occluded, no EEG changes were noted. The carotid arteriotomy was made. The endarterectomy was performed without creating a distal flap. The intima was inspected and all loose debris was removed. Tacking sutures were placed at the transition zone. When the endarterectomy was deemed satisfactory, the arteriotomy was closed with running Prolene and a thin walled pericardial patch. Flow was established first through the external, then the internal carotid. The carotid vessels were backbled and the artery was irrigated with heparinized saline prior to finishing the closure. Protamine was given to reverse the heparin. Hemostasis was ascertained. When hemostasis was satisfactory, the [place] drain was brought out through the [facility] [address] [place] [address] OPERATIVE REPORT Name: TARYN FAM Room #: 251-P [facility] IN M.R.#: [id number] Admission: 07/26/19 Attend Phys: Hammad Mann MD Discharge: 07/27/19 Date of : 44 Report #: [id number] bottom pole of the incision. The wound was closed in layers with interrupted Vicryl for the platysma and running Monocryl for the skin. A IJEOMA dressing was applied. The patient was taken to the recovery area where his neurologic progress was monitored. All counts reported as correct. <ELECTRONICALLY SIGNED> By: Hammad Mann MD 08/01/19 0900 1034 1051 Hammad Mann MD /nt
== END 2019-07-27 13:40 | disposition home or self-care (01) | DRG 37 ==
LOC: TBA 06:11 → ICU 06:11 → PRE 10:36 → ICU 11:33 → EDSTATUS 12:03 → PRE 12:18 → OR 12:20 → EDSTATUS 12:28 → PRE 12:35 → ICU 07-27 13:40
PROVIDERS: Physician Assistant; ADMIT Surgery Vascular Surgery; ATTEND Surgery Vascular Surgery
PROC: 03CK0ZZ Extirpation of Matter from Right Internal Carotid Artery, Open Approach (ICD-10-PCS; principal; 2019-07-26)
PROC: 03UK0KZ Supplement Right Internal Carotid Artery with Nonautologous Tissue Substitute, Open Approach (ICD-10-PCS; principal; 2019-07-26)
DX: I65.21 Occlusion and stenosis of right carotid artery (principal); N17.0 Acute kidney failure with tubular necrosis; Z20.828 Contact with and (suspected) exposure to other viral communicable diseases; I48.91 Unspecified atrial fibrillation; Z88.1 Allergy status to other antibiotic agents; Z88.0 Allergy status to penicillin; Z88.2 Allergy status to sulfonamides; Z88.7 Allergy status to serum and vaccine; Z88.8 Allergy status to other drugs, medicaments and biological substances; Z79.899 Other long term (current) drug therapy
CPT/HCPCS: 10078; 47375; 50010; 50101; 50386; 50417; 50455; 51301; 52279; 52287; 54118; 56524; 56526; 56528; 56534; 57254; 62110; 62900; 65020; 65040; 70005

== ENCOUNTER → 2019-09-29 | Outpatient (CLI) | payer OTHER | LOC: SJCVCIMAG 09:47 | PROVIDERS: ATTEND Internal Medicine Cardiovascular Disease | DX: I08.8 Other rheumatic multiple valve diseases (principal); I44.7 Left bundle-branch block, unspecified; R94.31 Abnormal electrocardiogram [ECG] [EKG]; I48.21 Permanent atrial fibrillation; I42.0 Dilated cardiomyopathy; I42.8 Other cardiomyopathies; I11.0 Hypertensive heart disease with heart failure; I50.20 Unspecified systolic (congestive) heart failure; I25.10 Atherosclerotic heart disease of native coronary artery without angina pectoris; Z95.2 Presence of prosthetic heart valve; Z79.899 Other long term (current) drug therapy; Z87.891 Personal history of nicotine dependence ==

== ENCOUNTER → 2019-10-12 | Outpatient (CLI) | payer OTHER | LOC: HYPER 14:13 | PROVIDERS: ATTEND Emergency Medicine | DX: E11.621 Type 2 diabetes mellitus with foot ulcer (principal); L97.512 Non-pressure chronic ulcer of other part of right foot with fat layer exposed; L97.521 Non-pressure chronic ulcer of other part of left foot limited to breakdown of skin; L84 Corns and callosities; Q66.89 Other specified congenital deformities of feet; M19.90 Unspecified osteoarthritis, unspecified site; I11.0 Hypertensive heart disease with heart failure; Z87.891 Personal history of nicotine dependence; Z79.84 Long term (current) use of oral hypoglycemic drugs; Z79.82 Long term (current) use of aspirin; Z79.01 Long term (current) use of anticoagulants ==

== ENCOUNTER → 2019-10-26 | Outpatient (CLI) | payer OTHER | LOC: HYPER 14:34 | PROVIDERS: ATTEND Emergency Medicine | DX: E11.621 Type 2 diabetes mellitus with foot ulcer (principal); L97.512 Non-pressure chronic ulcer of other part of right foot with fat layer exposed; L97.521 Non-pressure chronic ulcer of other part of left foot limited to breakdown of skin; L84 Corns and callosities; I25.2 Old myocardial infarction; I10 Essential (primary) hypertension; M19.90 Unspecified osteoarthritis, unspecified site; Z79.84 Long term (current) use of oral hypoglycemic drugs; Z79.01 Long term (current) use of anticoagulants; Z79.82 Long term (current) use of aspirin ==

== ENCOUNTER 2019-11-02 12:21 | Inpatient (IN) | payer OTHER ==
[~2019-11-02 12:21] MED LIST changes: -DIGOXIN250 MCG PO; -DILTIAZEM 24HR360 M1 PO; -ROPINIROLE HCL0.5 MG PO
[2019-11-02 12:50] VITALS: BP 124/83
[2019-11-02 13:04] LABS: HEMATOCRIT 40.4 % (42.0-52.0); HEMOGLOBIN 13.1 gm/dL (14.0-18.0); MCH 27.5 pg (26.0-34.0); MCHC 32.5 g/dL (28.0-37.0); MCV 84.6 fL (80.0-100.0); RBC 4.77 mil/uL (4.50-6.00); WBC 7.6 thou/uL (4.0-11.0)
[2019-11-02 13:33] LABS: ALBUMIN 3.8 g/dL (3.4-5.0); CALCIUM 9.1 mg/dL (8.5-10.1); CREATININE 1.4 mg/dL (0.7-1.3); POTASSIUM 4.3 mmol/L (3.5-5.1); TOTAL BILIRUBIN 0.7 mg/dL (0.2-1.0); TOTAL PROTEIN 7.6 g/dL (6.4-8.2)
[2019-11-02 15:40] VITALS: BP 102/72
[2019-11-02] MEDS ORDERED: ROPINIROLE HCL0.5 MG PO ×2 (16:12)
--- NOTE | 2019-11-02 18:08 | NUR ---
PT. ARRIVED AT FLOOR AROUND 1300; PT. AOX4; NO C/O PAIN; ADMISSION PERFORMED; AFIB ON THE MONITOR; IV STARTED; SCHEDULED MEDICATION GIVEN; PT. EDUCATED ABOUT FALL PREVENTIONS & GOALS THROUGH THE AFTERNOON; ST. UNDERSTANDING; AROUND 1530 PT. C/O CRAMPS OVER HANDS; NO PRN MEDICATION; HANS NEURO UROLOGIST NOTIFIED; ORDERS ON PLACED; PER PT. TAKES PRN POTASSIUM & ADVIL; NURSE PRACTITIONER NOTIFIED; NO NEW ORDERS; PER PT. FORGOT MEDICATION LIST; REQUESTED IT; PER PT. MIGHT NOT BE SOMEONE WHO CAN BRING IT; [facility] CONTACTED & REQUESTED MEDICATION LIST; WAITING; PT. UPSET BECAUSE POTASSIUM NOT ORDER; COMPANY MINER BLASTING NEURO UROLOGIST NOTIFIED; ORDERS ON PLACED; POTASSIUM GIVEN; ADMISSION PERFORMED; ASSESSMENT CHARGED; FOLLOWING POC; WILL PASS ON REPORT;
[2019-11-02 18:59] LABS: MAGNESIUM 2.2 mg/dL (1.8-2.4); POTASSIUM 3.8 mmol/L (3.5-5.1)
[2019-11-02] MEDS ORDERED: DILTIAZEM 24HR360 M1 PO ×2 (19:03)
[2019-11-02 20:07] VITALS: BP 156/89
[2019-11-03] VITALS (7 sets, daily range): BP systolic 109–135; BP diastolic 56–94
--- NOTE | 2019-11-03 04:55 | NUR ---
ASSUMED CARE OF PATIENT AT 1900. PATIENT C/O MUSCLE CRAMPING AND UPSET THAT HE CAN'T SELF MEDICATE WITH ADVIL AND POTASSIUM IT IS EFFECTIVE AT HOME FOR HIM. PATIENT STATES THAT HE WILL REFUSE AM LASIX HE BELIEVES IT MUSCLE CRAMPS WILL BE UNBEARABLE. EDUCATED PATIENT ABOUT IMPORTANCE OF LASIX TO HELP DIURESE.
[2019-11-03 08:18] LABS: CALCIUM 8.5 mg/dL (8.5-10.1); CREATININE 1.1 mg/dL (0.7-1.3); POTASSIUM 4.1 mmol/L (3.5-5.1)
--- NOTE | 2019-11-03 11:17 | NUR ---
met with patient who lives in multi level independent home [place]. He reports all needs on on level in home. He reports does not live alone. PCP Dr Jesus Islas. [employer] independent with adls and self care. 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 Anticipate no dc needs. Planned pacemaker. casemgt following.
--- NOTE | 2019-11-03 18:12 | NUR ---
ASSUMED CARE AT SHIFT CHANGE, ALERT AND ORIENTED X4. ASSESSMENT DOCUMENTED. VSS, AFIB ON THE MONITOR, AND AFEBRILE. PATIENT C/O SPASMS ON NAIMA AND BLE, DR PLEITEZ AND DR DALE AT BEDSIDE THIS MORNING,ADDRESSED PATIENT QUESTION AND CONCERNS, AND SOME OF HIS MEDS WAS ADJUSTED. AND WILL CONTINUE WITH POC.
[2019-11-04] VITALS (11 sets, daily range): BP systolic 97–1127; BP diastolic 52–73
--- NOTE | 2019-11-04 05:11 | NUR ---
SLEPT MOST OF SHIFT PAST INCREASE OF IBUPROFEN LAST NOC, GIVEN FOR LEG CRAMPS. NPO PAST MIDNIGHT FOR PROBABLE PACEMAKER INSERTION TODAY. NO PERMIT ORDERED OF YET. WORKING ON GOALS AND PLAN OF CARE FOR NOC. NOT PROGRESSING TOWARDS DISCHARGE GOALS AT THIS TIME. CONTINUE TO ASSES CLOSELY.
[2019-11-04 06:29] LABS: CALCIUM 8.8 mg/dL (8.5-10.1); CREATININE 1.3 mg/dL (0.7-1.3); POTASSIUM 4.5 mmol/L (3.5-5.1)
--- NOTE | 2019-11-04 13:47 | NUR ---
Patient to have pacemaker and dc possibly in am. casemgt following.
--- NOTE | 2019-11-04 17:43 | NUR ---
ASSUMED CARE AT SHIFT CHANGE, ALERT AND ORIENTED X4, VSS AND AFIB ON THE MONITOR THIS MORNING. S/P ICD PLACEMENT TO LT UPPER CHEST, INCISION INTACT, IMMOBOLIZER INPLACE TO LET ARM, AND INSTRUCTED TO NOT TAKE IT OFF. VSS POST PROCEDURE. ASSESSMENT DOCUMENTED, AND WILL CONTINUE WITH POC.
[2019-11-05 00:30] VITALS: BP 132/67
[2019-11-05 03:46] VITALS: BP 119/58
--- NOTE | 2019-11-05 03:56 | NUR ---
ASSESSMENT DOCUMENTED.PT BEEN RESTING IN NO ACUTE DISTRESS.S/P BIVENTRICULAR PACEMAKER .LEFT CHEST INCISION INTACT,NO HEMATOMA.IMMOBILIZER IN PLACE.PT VOIDING VIA URINAL ,VOIDING ADEQUATELY.PT DENIES PAIN OR ANY DISTRESS.POSSIBLE DISCHARGE TO HOME TODAY.WILL CONT TO MONITOR PER POC.
[2019-11-05 06:42] LABS: CALCIUM 8.6 mg/dL (8.5-10.1); CREATININE 1.3 mg/dL (0.7-1.3); POTASSIUM 4.2 mmol/L (3.5-5.1)
[2019-11-05] MEDS ORDERED: DIGOXIN250 MCG PO ×2 (07:40)
[2019-11-05 08:00] VITALS: BP 111/67; BP 143/62
[2019-11-05 10:20] VITALS: BP 143/62
--- NOTE | 2019-11-05 10:44 | NUR ---
ASSESSMENT CHARTED. PT ALERT AND ORIENTED. VSS. DENIED HAVING PAIN OR DISCOMFORT. PACE MAKER INCISION. C/DI WITH DERMABOND. ORDERS GIVEN TO DISCHARGE PT TO HOME. PACEMAKER DISCHARGE INSTRUCTIONS GIVEN TO PT. PT VERBERLISED UNDERSTANDING. PT LEFT THE FACILITY ACCOMPANIED BY THE DAUGHTER.
--- NOTE | 2019-11-08 08:14 | P ---
[facility] [place] [address] PROCEDURE REPORT Name: TARYN FAM Room #: 206-P [facility] IN M.R.#: [id number] Admission: 11/02/19 Attend Phys: Jose Martin Smith MD, Discharge: 11/05/19 Date of : 44 Report #: [id number] THIS REPORT FOR: cc: Jesus Islas,Stephan Baptiste MD ~ CC: Jose Martin Islas DATE OF SERVICE: 11/05/2019 BI-V ICD IMPLANTATION PREOPERATIVE DIAGNOSES: 1. Nonischemic cardiomyopathy. 2. Permanent atrial fibrillation. 3. Left bundle-branch block. 4. 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 PROCEDURES PERFORMED: Bi-V ICD implantation. 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 The patient has been on optimal medical therapy for greater than 6 months and his EF is less than 35%. He is here for Bi-V ICD implantation. ANESTHESIA: The patient underwent MAC anesthesia with no anesthesia related complications. DESCRIPTION OF PROCEDURE: The patient underwent informed consent. We discussed the details of the procedure including the risks, which include but not limited to bleeding, infection, vascular damage, cardiac perforation and pneumothorax. He understood these risks and is willing to proceed. The patient was brought to EP laboratory in fasting and sedated state, prepped and draped in sterile fashion. He received IV antibiotics prior to initiation of the procedure and underwent a venogram showing patency of left axillary vein. Next, I injected lidocaine at the incision site and a pocket was made over the prepectoral fascia. Access was obtained twice to left axillary vein using the extrathoracic approach with sheaths positioned using modified Seldinger technique. Next, a RV lead was positioned in the right ventricular apex with adequate pacing and sensing thresholds. The lead was sutured to the prepectoral fascia. Of note, while I was placing the LV sheath into the coronary sinus, this dislodged the RV lead. Therefore, I attempted repositioning it, but had some difficulties; therefore, I pulled the lead out of the prior site and [facility] [address] [place] [address] PROCEDURE REPORT Name: TARYN FAM Room #: 206-P [facility] M.R.#: [id number] Admission: 11/02/19 Attend Phys: Jose Martin Smith MD, Discharge: 11/05/19 Date of : 44 Report #: [id number] obtained access to the left axillary vein again and I was able to easily position the RV lead in the right ventricular apex and it remained stable throughout the procedure. Next, a short sheath was placed in the left axillary vein and the coronary sinus guide sheath was placed in the coronary sinus. I was able to locate the coronary sinus quickly and I was able to get into the proximal third of the coronary sinus, but the sheath would not advance past its proximal third. It appeared that there is likely a valve that was impeding my ability to advance this. I used several wires to try to get pass this and also used a quadripolar catheter as well and eventually utilizing both the quadripolar catheter and a Wholey wire, I was able to advance the sheath pass this valve and do a formal venogram. Of note, he did have a middle cardiac vein, which was hard to engage. He had no significant posterior lateral branches and he did have a nice anterolateral branch, which actually connected with the middle cardiac vein. Therefore, I advanced the quadripolar lead up into this anterolateral branch and although the thresholds were not optimal, the lead was left at this position with no phrenic nerve capture. We had limited vectors as well at this site despite the quadripolar lead. Therefore, the sheath was split and the lead remained in position and the thresholds remained stable. The leads were then sutured in the prepectoral fascia, connected to the device. Tug test performed. The pocket was irrigated with vancomycin and then the pocket was closed in 2 layers using 2-0 for the deep layer, 3-0 for the mid layer with surgical glue placed to the outer skin layer. There were no procedure related complications. The implanted device is a Clikthrough, model # [id number], serial # [id number]. RV lead was a 6935, 62 cm, serial # [id number]. The LV lead was a 4298, 88 cm, serial # [id number]. The R waves were 15.4 millivolts, pacing impedance was 653 ohms, pacing threshold was 3.3 volts at 1.5 milliseconds in the LV1-LV3 peak pacing vector. The RV lead demonstrated R waves of 7 millivolts, pacing impedance 471 ohms and the pacing threshold 0.5 volts at 0.5 milliseconds. The device was programmed to VVIR 60-130 mode. The VT zone was set at 180-220 beats per minute with 3 rounds of burst followed by 3 rounds of ramp followed by max output shocks. The VF zone was set greater than 220 beats per minute with ATP while charging followed by max output shocks. CONCLUSIONS: 1. Successful BiV ICD implantation. 2. Satisfactory right ventricular and left ventricular pacing and sensing thresholds. <ELECTRONICALLY SIGNED> By: Stephan Junior MD 11/08/19 0814 1421 1509 Stephan Junior MD /nt
== END 2019-11-05 10:41 | disposition home or self-care (01) | DRG 226 ==
LOC: 2N 12:21
PROVIDERS: Internal Medicine Cardiovascular Disease; Nurse Practitioner Adult Health; ADMIT Internal Medicine Cardiovascular Disease; ATTEND Internal Medicine Cardiovascular Disease
DX: I11.0 Hypertensive heart disease with heart failure (principal); N17.0 Acute kidney failure with tubular necrosis; I48.21 Permanent atrial fibrillation; D68.59 Other primary thrombophilia; I50.23 Acute on chronic systolic (congestive) heart failure; I42.8 Other cardiomyopathies; I44.7 Left bundle-branch block, unspecified; E78.00 Pure hypercholesterolemia, unspecified; I65.23 Occlusion and stenosis of bilateral carotid arteries; E11.9 Type 2 diabetes mellitus without complications; I25.10 Atherosclerotic heart disease of native coronary artery without angina pectoris; R25.2 Cramp and spasm; I48.91 Unspecified atrial fibrillation; Z20.828 Contact with and (suspected) exposure to other viral communicable diseases; Z95.2 Presence of prosthetic heart valve; Z88.0 Allergy status to penicillin; Z88.8 Allergy status to other drugs, medicaments and biological substances; Z88.1 Allergy status to other antibiotic agents; Z88.7 Allergy status to serum and vaccine

== ENCOUNTER → 2019-11-02 | Outpatient (CLI) | payer OTHER ==
[~2019-11-02] MED LIST changes: +DIGOXIN250 MCG PO; +DILTIAZEM 24HR360 M1 PO; +ROPINIROLE HCL0.5 MG PO
== END ==
LOC: SJCVCIMAG 06:44
PROVIDERS: ATTEND Internal Medicine Cardiovascular Disease
DX: I08.1 Rheumatic disorders of both mitral and tricuspid valves (principal); I48.91 Unspecified atrial fibrillation; I42.8 Other cardiomyopathies; I11.0 Hypertensive heart disease with heart failure; I50.20 Unspecified systolic (congestive) heart failure; I48.21 Permanent atrial fibrillation; I65.23 Occlusion and stenosis of bilateral carotid arteries; D68.59 Other primary thrombophilia; E11.9 Type 2 diabetes mellitus without complications; Z95.3 Presence of xenogenic heart valve; Z79.899 Other long term (current) drug therapy

== ENCOUNTER → 2019-11-11 | Outpatient (CLI) | payer OTHER ==
[~2019-11-11] MED LIST changes: +DIGOXIN250 MCG PO; +DILTIAZEM 24HR360 M1 PO; +ROPINIROLE HCL0.5 MG PO
== END ==
LOC: HYPER 15:03
PROVIDERS: ATTEND Emergency Medicine
DX: E11.621 Type 2 diabetes mellitus with foot ulcer (principal); L97.512 Non-pressure chronic ulcer of other part of right foot with fat layer exposed; L97.521 Non-pressure chronic ulcer of other part of left foot limited to breakdown of skin; L84 Corns and callosities; I25.2 Old myocardial infarction; I10 Essential (primary) hypertension; M19.90 Unspecified osteoarthritis, unspecified site; Z79.84 Long term (current) use of oral hypoglycemic drugs; Z79.01 Long term (current) use of anticoagulants; Z79.82 Long term (current) use of aspirin

== ENCOUNTER → 2019-11-11 | Outpatient (CLI) | payer OTHER | LOC: SJCVC 16:03 | PROVIDERS: ATTEND Internal Medicine Cardiovascular Disease | DX: Z45.02 Encounter for adjustment and management of automatic implantable cardiac defibrillator (principal); I25.5 Ischemic cardiomyopathy; Z95.810 Presence of automatic (implantable) cardiac defibrillator ==

== ENCOUNTER → 2019-11-29 | Outpatient (CLI) | payer OTHER | LOC: HYPER 15:12 | PROVIDERS: ATTEND Emergency Medicine | DX: E11.621 Type 2 diabetes mellitus with foot ulcer (principal); L97.511 Non-pressure chronic ulcer of other part of right foot limited to breakdown of skin; L84 Corns and callosities; M21.6X2 Other acquired deformities of left foot; M19.90 Unspecified osteoarthritis, unspecified site; I11.9 Hypertensive heart disease without heart failure; Z79.84 Long term (current) use of oral hypoglycemic drugs; Z79.01 Long term (current) use of anticoagulants; Z79.82 Long term (current) use of aspirin; Z87.891 Personal history of nicotine dependence ==

== ENCOUNTER → 2020-05-29 | Outpatient (CLI) | payer OTHER | LOC: SJCVCIMAG 09:13 | PROVIDERS: ATTEND Internal Medicine Cardiovascular Disease | DX: I08.3 Combined rheumatic disorders of mitral, aortic and tricuspid valves (principal); I25.10 Atherosclerotic heart disease of native coronary artery without angina pectoris; E11.9 Type 2 diabetes mellitus without complications; I11.0 Hypertensive heart disease with heart failure; I50.20 Unspecified systolic (congestive) heart failure; I65.23 Occlusion and stenosis of bilateral carotid arteries; I25.5 Ischemic cardiomyopathy; I48.21 Permanent atrial fibrillation; D68.59 Other primary thrombophilia; E78.00 Pure hypercholesterolemia, unspecified; M54.9 Dorsalgia, unspecified; F12.90 Cannabis use, unspecified, uncomplicated; Z95.3 Presence of xenogenic heart valve; Z79.899 Other long term (current) drug therapy; Z87.891 Personal history of nicotine dependence; Z72.89 Other problems related to lifestyle; Z88.1 Allergy status to other antibiotic agents; Z88.2 Allergy status to sulfonamides; Z88.8 Allergy status to other drugs, medicaments and biological substances ==

== ENCOUNTER → 2020-12-18 | Outpatient (CLI) | payer OTHER | LOC: SJCVC 12:13 | PROVIDERS: ATTEND Internal Medicine Cardiovascular Disease | DX: I25.10 Atherosclerotic heart disease of native coronary artery without angina pectoris (principal); E11.9 Type 2 diabetes mellitus without complications; I65.23 Occlusion and stenosis of bilateral carotid arteries; I11.0 Hypertensive heart disease with heart failure; I50.9 Heart failure, unspecified; E78.00 Pure hypercholesterolemia, unspecified; D68.59 Other primary thrombophilia; I48.91 Unspecified atrial fibrillation; I42.9 Cardiomyopathy, unspecified; Z95.810 Presence of automatic (implantable) cardiac defibrillator; Z95.3 Presence of xenogenic heart valve; Z88.0 Allergy status to penicillin; Z88.8 Allergy status to other drugs, medicaments and biological substances; Z79.84 Long term (current) use of oral hypoglycemic drugs; Z79.899 Other long term (current) drug therapy; Z72.89 Other problems related to lifestyle; Z87.891 Personal history of nicotine dependence ==